=== PATIENT | male | born 2000 | race African-American/Black ===

== ENCOUNTER 2022-11-01 02:34 | Emergency (ER) | payer BC ==
[~2022-11-01] VITALS: Ht 185.4 cm; Wt 104.0 kg
[2022-11-01 02:46] VITALS: BP 128/75; PULSE 90; RESP 17; TEMP 98.3
[2022-11-01 04:31] LABS: AMPHET/METH SCREEN,URINE NEGATIVE (NEGATIVE); BARBITURATE SCREEN, URINE NEGATIVE (NEGATIVE); BENZODIAZEPINES SCREEN,URINE NEGATIVE (NEGATIVE); CANNABINOID SCREEN,URINE POSITIVE (NEGATIVE); COCAINE SCREEN,URINE NEGATIVE (NEGATIVE); METHADONE SCREEN, URINE NEGATIVE (NEGATIVE); OPIATE SCREEN,URINE NEGATIVE (NEGATIVE); PHENCYCLIDINE SCREEN,URINE NEGATIVE (NEGATIVE)
== END 2022-11-01 04:37 | disposition home or self-care (01) ==
LOC: EMS 02:34
DX: R45.851 Suicidal ideations (principal); F20.9 Schizophrenia, unspecified; F31.9 Bipolar disorder, unspecified; F17.210 Nicotine dependence, cigarettes, uncomplicated; F12.90 Cannabis use, unspecified, uncomplicated
CPT/HCPCS: 80307; 99283